=== PATIENT | female | born 1940 | race Caucasian/White ===

== ENCOUNTER 2016-04-02 11:09 | Emergency (ER) | payer MEDICARE | END 2016-04-02 16:38 | disposition home or self-care (01) | LOC: D.ER 11:09 | DX: R60.0 Localized edema (principal); F41.9 Anxiety disorder, unspecified; F03.90 Unspecified dementia, unspecified severity, without behavioral disturbance, psychotic disturbance, mood disturbance, and anxiety; F32.9 Major depressive disorder, single episode, unspecified; I10 Essential (primary) hypertension ==